=== PATIENT | male | born 1945 | race Caucasian/White ===

== ENCOUNTER 2025-08-12 13:03 | Outpatient (AMB) | payer MEDICARE, BC, SELFPAY ==
--- NOTE | 2025-08-12 13:17 | A.OFFVIS_ITS ---
Intake Visit Reasons: TREMORS AND FOOT CONTRACTURE Allergies No Known Allergies Allergy (Verified 08/11/25 11:01) Medication List - Last Reconciled 08/12/25 by Suresh Sanches MD amlodipine 5 mg PO DAILY apixaban (Eliquis) 5 mg PO BID atorvastatin 80 mg PO DAILY baclofen 10 mg PO TID 30 days clopidogrel 75 mg PO DAILY isosorbide mononitrate ER 60 mg PO DAILY losartan 50 mg PO BID metoprolol tartrate 25 mg PO BID nitroglycerin mg sublingual tramadol 50 mg PO BID PRN HPI Comments Details: This is a 79-year-old man who is here with his . He has a history of hypertension, hyperlipidemia, coronary artery disease with stents and bypass and at least 2 previous strokes in 2013 and 2015 which left him with some left hemiparesis but he was able to get around with a cane and a walker. He had to be moved to an assisted living facility in February 2025 and there he has been mostly in the wheelchair and being transferred via [facility] lift. Once or twice a week he gets a little bit of physical therapy with a try and stand him up but otherwise he is sitting in the chair. He is now not able to stand or walk at this point and his left foot has started to turn in and become quite spastic and rigid. He is unable to extend his knees fully. He has 30% to 35% restriction of extension of the knees bilaterally. In the last 3 years he has also been noted to have tremors in both hands particularly when he is holding a cup of liquid. There is no family history of tremor previously. [facility] Medical History (Updated 08/12/25 @ 13:34 by Suresh Sanches MD) PAF (paroxysmal atrial fibrillation) Hypertension Arthritis of knee Contracture, left foot Tremor Review of Systems ENT Reports hearing loss Reports urinary incontinence Musc Reports abnormal gait, Reports arthralgias and Reports limited range of motion Neuro Reports abnormal gait and Reports tremor(s) Physical Exam Neuro Other: He is alert and oriented with normal speech and cognitive abilities. His cranial nerves 2-12 are normal. He has bilateral shoulder abduction weakness with restriction of shoulder abduction to about 60 degrees being painful. He has fine tremors in his fingers bilaterally when he holds them up. 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 He has left lower extremity weakness and is unable to extend the knees bilaterally with the restriction of 30 degrees on the right and 35 degrees in the left. Reflexes are 2+ plantar responses are flexor. There is increased tone in the left lower extremity with the plantar flexion and inversion of the foot and fibrotic contracture of the left gastroc and soleus. He is in a wheelchair and unable to stand by himself or walk. Assessment & Plan Assessment & Plan (1) Stroke: Code(s): I63.9 - Cerebral infarction, unspecified Category: Medical (2) Hemiparesis affecting left side as late effect of cerebrovascular accident: Code(s): I69.354 - Hemiplegia and hemiparesis following cerebral infarction affecting left non-dominant side Category: Medical (3) Tremor: Code(s): R25.1 - Tremor, unspecified Category: Medical Plan ROM exercises, Brace for left foot. Trial of Baclofen. For the tremor, we discussed treatment options and decided to hold off meds a she is on Eliquis. Medications: New baclofen 10 mg PO TID 90 tabs 3RF 30 days Coding Level of Care Code New Pt Level 5 (41314) Diagnoses Stroke I63.9 Hemiparesis affecting left side as late effect of cerebrovascular accident I69.354 Tremor R25.1
--- OUTSIDE RECORDS SUMMARY | 2025-08-12 20:05 | XMS_ITS | Encounter Summary ---
Author Organization [facility] Address [address] [place] [address] Care Team Providers Care Feltmaker Name Role Phone Joshua Khan Primary Care Provider Encounter Details Date Type Department Care Team (Late st Contact Info) Description 05/30/2025 Telemedicine [facility] Electrophysiology [address] [place] [phone] Francie Forrester MD [address] [place] [address] [address] [place] [address] Social History Tobacco Use Types Packs/Day Years Used Date Smoking Tobacco: Former Cigarettes Smokeless Tobacco: Never Alcohol Use Standard Drinks/Week Comments Not Currently 0 (1 standard drink = 0.6 oz pur e alcohol) Sex and Gender Information Value Date Recorded Sex Assigned at Not on file Legal Sex Male 7:04 PM EST Gender Identity Not on file Sexual Orientation Not on file documented as of this encounter Plan of Treatment Not on file documented as of this encounter Visit Diagnoses Not on filedocumented in this encounter Additional Health Concerns Assessment Noted Time PHQ-9 Depression Total Score: 0 02/25/20 25 12:24 PM EDT documented as of this encounter Care Teams Feltmaker Relationship Specialty Start Date End Date Joshua Khan PA [facility] [place] [address] PCP - General Pediatrics 07/23/25 documented as of this encounter
--- OUTSIDE RECORDS SUMMARY | 2025-08-12 20:05 | XMS_ITS | Continuity of Care Document ---
Author Organization [place] - [facility], [facility] [place] Address [address] [place] [address] Assessment No assessment recorded. Plan of Treatment Reminders Order Date Submit Date Provider Last Modified By Organization Details Last Modified Time Details Appointments None recorded. Lab None recorded. Referral None recorded. Procedures None recorded. Surgeries None recorded. Imaging XR, hand, 3 or more view - u/c 2 pt. in a wheelchair 2024 025 [email or web address] [facility], [address] [facility] [address], [address], [address], 11:47:26 Medication Orders None recorded. Patient TargetsNo targets recorded. Patient InstructionsNo instructions recorded. Reason for Referral None Reported. Results Created Date Observation Date Name Description Value Unit Range Abnormal Flag Note LastModifiedBy Organization Detail LastModifiedTime 07/29/2007/29/2025 XR, hand, 3 or more view http:/ [email or web address] ?Encry pted=s hAaTro YD8dLq bEUv6g %2BXZw aYqtaq 0bqfl% 2Fg9IQ a4ajBk vP9nXo QUaueC m3YtLR FvZlgJ JJ8mAn HZtai3 6h0567 AC0KlY 3SEUKC lKiQtr MwF INTERFACE [address] [facility] [address] [facility] [address], [place], [address], 07/29/2025 09:42:37 07/29/2007/29/2025 XR, hand, 3 or more view http:/ [email or web address] ?Encry pted=s hAaTro YD8dLq bEUv6g %2BXZw aYqtaq 0bqfl% 2Fg9IQ a4ajBk vP9nXo QUaueC m3YtLR FvZlgJ JJ8mAn HZtai3 0t2818 AC0KlY 3SEUKC lKiQtr MwF INTERFACE [facility] [address], [place], [address], 07/29/2025 09:42:39 Result Notes Documentation Provider Name and Address Organization Details Recorded Time Xr, Hand, 3 Or More View : [email or web address] Encrypted=scAoRsgQS4gTfnT Uv6g%2HDNuvBubbn4ftra%2Fg 3YLo8poYmoF2dNnWUhhnBo5Hl SJOxZwtRAG7jLcIOjzj84j066 9BD9TzO3MMMYZfGvJncGxN Not Available [facility] 07/29/2025 09:42: 38 Xr, Hand, 3 Or More View : [email or web address] Encrypted=yyQzEfoMT0kXcsW Uv6g%6XBWdsWigxg8thhr%2Fg 2AIk9ltRypC5zKuSEngtMg0Sj HVKxBgmBYJ1wSoUNgxo18m512 7WQ1BxQ0QNCGQiFtMsuLaI Not Available [facility] 07/29/2025 09:42: 39 Problems Name Problem SNOMED Code Status Onset Date Resolution Date Notes Provider Name and Address Organization Details Recorded Time Osteoarthri tis of left knee joint 1315940618823 09 Active 2024 Crispin Childs MD [address], [place], [address] , [facility] - [facility] 5 15:29:42 Pain of elbow region 93272688 Active 2024 Caroline wakefield [place] - [facility] 09:29:00 Pain of right hand 1037191880645 09 Active 2024 [facility] 09:33:51 Problem Notes None recorded. Procedures Surgical History Date Name Laterality Status Provider Name and Address Organization Details Recorded Time 05/28/20 25 Knee Kenalog 1cc L/R cancelled OSMANI Smith-C [address], [place], [address], [facility] 05/27/2025 21:00:54 02/20/20 25 Knee Kenalog 1cc L/R completed OSMANI Smith-C [address], [place], [address], [facility] 02/20/2025 07:38:42 11/14/19 25 Knee Kenalog 40 1cc Injection, Bilateral completed OSMANI Smith-C [address], [place], [address], [facility] 11/13/2024 11:58:59 07/21/20 24 Knee Kenalog 40 1cc Injection, Bilateral completed OSMANI Smith-C [address], [place], [address], [facility] 07/21/2024 12:32:20 04/07/20 24 Knee Kenalog 40 1cc Injection, Bilateral completed OSMANI Smith-C [address], [place], [address], [facility] 04/07/2024 15:18:34 01/07/20 24 Knee Kenalog 40 1cc Injection, Bilateral completed Abner Pruett PA-C [address], [place], [address], [facility] 01/07/2024 16:38:48 11/19/19 24 Knee Kenalog 40 1cc Injection, Bilateral completed Abner Pruett PA-C [address], [place], [address], [facility] 11/19/2023 12:26:58 Cardiovascular Surgery completed CAROLINE HOLM [place] - [facility] 11/13/2024 10:48:53 Imaging Results None recorded. Procedure Notes None recorded. Medical Equipment None Reported. Allergies No known drug allergies Medications Name Sig Start Date Stop Date Status Note LastModified by Organization Details LastModified Time losartan 50 mg tablet TAKE 1 TABLET BY MOUTH TWICE A DAY active Not Available Not Available No t Available furosemide 40 mg tablet TAKE 1 TABLET BY MOUTH EVERY DAY FOR 7 DAYS 09/10 completed Not Available Not Available Not Available atorvastati n 80 mg tablet TAKE 1 TABLET BY MOUTH EVERY DAY active Not Available Not Available No t Available amlodipine 2.5 mg tablet active Not Available Not Available Not Available clopidogrel 75 mg tablet TAKE 1 TABLET BY MOUTH EVERY DAY active Not Available Not Available No t Available amlodipine 5 mg tablet TAKE 1 TABLET BY MOUTH 1 TIME EACH DAY. active Not Available Not Available No t Available tramadol 50 mg tablet Take 1 tablet every 6 hours by oral route for 7 days. 06/05 completed Not Available Not Available Not Available isosorbide mononitrate ER 60 mg tablet,exte nded release 24 hr TAKE 1 TABLET BY MOUTH EVERY DAY active Not Available Not Available No t Available pantoprazol e 40 mg tablet,mildred yed release active Not Available Not Available Not Available nitroglycer in 0.[address] 1 TAB UNDER TONGUE EVERY 5 MINUTES NEEDED CHEST PAIN AFTER 3 DOSES IN 15 MINS CALL ER/911 active Not Available Not Available No t Available gabapentin 100 mg capsule Take 1 capsule twice a day by oral route as needed for 30 days. active Not Available Not Available No t Available albuterol sulfate HFA 90 mcg/actuati on aerosol inhaler INHALE 2 PUFFS BY MOUTH EVERY 4 HOURS NEEDED FOR SHORTNESS OF BREATH OR WHEEZING active Not Available Not Available No t Available metoprolol tartrate 25 mg tablet TAKE 1 TABLET BY MOUTH TWICE A DAY active Not Available Not Available No t Available diclofenac 1 % topical gel APPLY 2 GM TOPICALLY 3 TIMES A DAY 09/10 completed Not Available Not Available Not Available Eliquis 5 mg tablet TAKE 1 TABLET BY MOUTH TWICE A DAY active Not Available Not Available No t Available Wixela Inhub 100 mcg-50 mcg/dose powder for inhalation TAKE 1 PUFF BY MOUTH TWICE A DAY active Not Available Not Available No t Available JAGJIT 100 mg-theanine 100 mg-ashwagan dha extract 225 mg capsule Take 1 capsule every day by oral route for 30 days. 2024 active Not Available Not Available Not Sakina hobbs Vitals Date Recorded Body height Body mass index (BMI) Body weight Provider Name and Address Organization Details Last Updated DateTime 07/29/2025 177.8 cm 30.1 kg/m2 41645.4 g Caroline Reese [place] - [facility] 07/29/2025 09:28:11 Social History None recorded. Functional Status Question Answer Note LastModified by Organizat ion Details LastModified Time Do you or have you ever used any other forms of tobacco or nicotine? No Information not available 11/13/2024 Do you or have you ever used e-cigarettes or vape? Never used electronic cigarettes Information not available 11/13/2024 Mental Status None recorded. Family History Nothing Reported. Medical History Condition Response Arthritis Y Stroke Y Heart Attack (RI) Y Sleep Apnea Y Hypertension Y Past Encounters Encounter ID Performer Location Encounter Start Date Encounter Closed Date Diagnosis/Indication Diagnosis SNOMED-CT Code Diagnosis ICD10 Code Diagnosis IMO Codes Diagnosis Note [id number] Fran Lomas PA-C [facility] [place] [address] [place] [address] 07/29/2025 08:49:15 08/11/2025 12:26:55 Pain of right hand 2448707148 69074 M79.641 [id number] Health Concerns Section Related Observation LastModified by Organization Detai ls LastModified Time None Recorded Concern Status LastModified by Organization Details LastModified Time None Recorded Payers Encounter Date Sequence Insurance Name Policy Number Policy Steve Covered Member ID Steve Member ID Guarantor Name 07/29/2025 1 [place] [employer] Husam Mcfadden [id number] Husam Mcfadden 07/29/2025 2 [place] [id number] Husam Mcfadden [id number] Husam Mcfadden Notes Date Note Type Note Provider Name and Address Organization Details Recorded Time 07/29/2025 text/html I am seeing the patient today under the supervision of Dr. Childs who was available but who did not see the patient.HPI:Patient' s an 79-year-old male that comes in the office with complaints of discomfort about the right hand. He is here with his . He lives in an assisted living facility. A couple of days ago it sounds like he slid off a chair and caught himself with the right upper extremity from falling. Since then he is at increased swelling over the dorsum of the right hand with discomfort. He was seen in urgent care today.Past family, medical, social history and review of systems has been reviewed, updated and is located in the patient s chart.Examination:T he patient is well appearing and in no apparent distress. Alert and oriented x3. He presents today in a wheelchair. He has moderate swelling of the dorsum of the right wrist in the area of the distal radius. He has limited range of motion of flexion and extension of the right wrist. Peripheral, vascular, lymphatic examination, skin, neurological, coordination, reflexes, sensation are within normal limits.X-rays ordered, obtained and reviewed at [facility] 3 views of the right wrist reviewed demonstrate generalized arthritic change of the hand to include the CMC joint and the DRUJ. There is erosion of the distal radius where the scaphoid meets this area. Smokes chronic in nature. 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 We discussed conservative treatment for this problem. He cannot take a lot of medications. He is on multiple medicines for his comorbidities including anticoagulants. Topical treatment recommended and discussed. We discussed immobilization for the wrist due to this increased swelling in injury to the arthritic wrist. I provided him with a prescription for a wrist splint. We discussed the use of the splint longer term to assist him to get out of his chair and transfer. All questions were answered to his as action today. Fran Lomas PA-C [facility] [address], [place], [address], [facility] - [facility] 07/29/2025 11:00:02
--- OUTSIDE RECORDS SUMMARY | 2025-08-12 20:05 | XMS_ITS | Data Portability ---
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 Greater than 10 years of ongoing symptoms. Apparently, the patient has had multiple falls at home. He has had a stroke in the past. However, the patient essentially has been nonambulatory for approximately 5 years. He is almost essentially wheelchair-bound. He can ambulate occasionally very short distances with a walker. He has had corticosteroid in the past. He has not had long-term benefit. He recently was hospitalized and referred to acute rehab. He states that rehab was not particular helpful for him. Upon discharge he had some home PT. He was not able to regain his ambulatory status. The patient presents today requesting total knee arthroplasty for symptom relief. He gets about 6 weeks relief from corticosteroid. He has had no benefit from viscosupplementat ion. The patient's knee symptom profile form was reviewed and is part of the medical record. The patient remains symptomatic and has had an unsuccessful history of appropriate conservative therapy (non-surgical medical management). Non-surgical medical management has been implemented for 3 months or more to assess effectiveness. Conservative treatment as clinically appropriate for the patient s current episode of care including, but not limited to, one or more of the following: anti-inflammatory medications, analgesics, flexibility and muscle strengthening exercises, supervised physical therapy (Activities of daily living (ADLs) diminished despite completing a plan of care), activity restrictions as is reasonable, assistive device use, weight reduction as appropriate, and therapeutic injections into the joint as appropriate PFMSH and ROS have been reviewed, updated, and is located in the patient s chart. PAST MEDICAL HISTORY: Past medical history is significant for coronary artery disease, ND, stroke, hypercholesteremi a, bronchitis, hypertension PAST SURGICAL HISTORY: Past surgical history includes cardiac stenting MEDICATIONS: Please see intake form. ALLERGIES: Patient reports an allergy to NKDA does not report an allergy to metal, latex, Iodine, tape, or adhesives. SOCIAL HISTORY: The present patient presents today with his . He quit smoking 40 years ago. He does not consume alcohol or illegal drugs. He last saw dentist 6 years ago. He has a support system at home. PHYSICAL EXAMINATION: Please see vitals recorded below Mental status: Alert and lucid. Normal insight, affect, and grooming. 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 No spasticity or clonus noted. Extremities: Calves are soft and nontender. Skin intact. Palpable pedal pulses equal bilaterally. ORTHOPEDIC EXAMINATION: Negative SLR tests bilaterally. Full ROM of both hips without pain. No trochanteric tenderness. The patient is seated in his wheelchair. He was not able to stand even for x-rays. Evaluation of knees: Left Knee range of motion is 10-95 degrees. Knee is stable to varus/valgus loading, anterior/posterio r drawer testing, Tim testing. No erythema, no redness. There is moderate sub patellar crepitus. Peripheral vascular, lymphatic examination, skin, neurological coordination, reflexes, and sensation are within normal limits. IMAGING: X-rays ordered, obtained, and reviewed today on [facility] PACS: Not weight bearing AP of Both knees, Espino view of Both Knees, [place] View of Both Knees, and Lateral of the Left knee; demonstrate severe end-stage osteoarthritis of the Left knee. There is ipwe-kf-lxjw articulation medially, subchondral sclerosis, osteophyte formation. There is varus deformity and there isModerate patellofemoral involvement. There is Kellgren Serge grade 4 osteoarthritis. IMPRESSION: Left knee end-stage osteoarthritis and a minimal ambulator PLAN: I reviewed with the patient surgical and nonsurgical means to control symptoms. The patient has essentially been nonambulatory for 5 years. He has flexion contractures bilaterally consistent with his status. He is essentially full I reviewed with the patient his situation. He describes relatively severe knee pain even at rest. Patient states that he is not even able to ambulate. I encouraged him that in order to have successful outcome from total knee arthroplasty would need to be able to participate in both physical therapy. It is not clear to me that he can do this. I recommended referral for a course of physical therapy to work on ambulation and strengthening. If the patient is able to turn his status to be limited ambulator with walker he may be able to participate in the postoperative physical therapy. In the interval, I have also recommended a genicular nerve block. This will be performed by the anesthesia pain service. It may help reduce his overall pain setting. He would need to be significant ambulator prior to consideration of total knee arthroplasty Patient will continue to follow-up in our office for intermittent intra-articular steroid. The patient knows I will be happy to meet with them at any time in order to review any additional questions or concerns that they might have. Patient was satisfied with this plan. I attempted to answer all of the patient's questions. [employer] speech recognition postal worker software was used to create portions of this document. An attempt at proofreading has been made to minimize errors. Please call for corrections. [email or web address] Not available 09/11/2024 08:34:53 Plan of Treatment Reminders Order Date Submit Date Provider Last Modified By Organization Details Last Modified Time Details Appointments None recorded. Lab None recorded. Referral [facility]is t [facility] [address], [facility] [address], [place], [address], 5 10:40:36 physical therapist referral - PT for ambulation and ROM 2024 025 Not available 5 14:08:26 Procedures genicular nerve block (PROC) 2024 025 [email or web address] Not available 5 14:01:09 Surgeries None recorded. Imaging XR, hand, 3 or more view - u/c 2 pt. in a wheelchair 2024 025 [email or web address] [facility], [address], [address], [place], [address], 5 11:47:26 XR, foot, 3 or more view - rm 108 left foot 3v wb 2024 025 [email or web address] [facility], [address], [address], [place], [address], 5 09:37:17 XR, knee, 4 or more view - 206, 4 views of left knee 2024 025 [email or web address] [facility], [address], [address], [place], [address], 5 14:08:26 Medication Orders tramadol 50 mg tablet 2024 025 [id number], [address] [place], [address], 5 05:01:57 JAGJIT 100 mg-theanin e 100 mg-ashwaga ndha extract 225 mg capsule 2024 025 [id number], [address] [place], [address], 5 16:02:37 gabapentin 100 mg capsule 2024 025 [id number] [address] [place], [address], 5 16:02:17 Patient TargetsNo targets recorded. Patient InstructionsNo instructions recorded. 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 left lower extremity hx of stroke Referring Physician: Consuelo Lopez, Orthopedic Surgery, Encounter Date: 05/22/2025 Results Created Date Observation Date Name Description Value Unit Range Abnormal Flag Note LastModifiedBy Organization Detail LastModifiedTime 09/10/192025 XR, knee, 4 or more view [email or web address] ?Encry pted=s hAaTro YD8dLq bEUv6g %2BXZw aYqtaq 0bqfl% 2Fg9IQ a4ajBk vP9nXo QUaueC m3YtLR FvZlgJ JJ8mAn HZtai3 1m1237 AC0Kqb 3yBWaC uKiQtr MwF INTERFACE [facility] [address] [facility] [address], [place], [address], 09/10/2024 14:15:50 09/10/19 25 09/10/2024 XR, knee, 4 or more view [email or web address] ?Encry pted=s hAaTro YD8dLq bEUv6g %2BXZw aYqtaq 0bqfl% 2Fg9IQ a4ajBk vP9nXo QUaueC m3YtLR FvZl JJ8mAn HZtai3 9a2244 AC0Kqb 3yBWaC uKiQtr MwF INTERFACE [facility] [address] [facility] [address], [place], [address], 09/10/2024 14:15:52 09/10/19 25 09/10/2024 XR, knee, 4 or more view [email or web address] ?Encry pted=s hAaTro YD8dLq bEUv6g %2BXZw aYqtaq 0bqfl% 2Fg9IQ a4ajBk vP9nXo QUaueC m3YtLR FvZlg JJ8mAn HZtai3 8c3398 AC0Kqb 3yBWaC uKiQtr MwF INTERFACE [facility] [address] [facility] [address], [place], [address], 09/10/2024 14:42:49 09/10/19 25 09/10/2024 XR, knee, 4 or more view [email or web address] ?Encry pted=s hAaTro YD8dLq bEUv6g %2BXZw aYqtaq 0bqfl% 2Fg9IQ a4ajBk vP9nXo QUaueC m3YtLR FvZlgJ JJ8mAn HZtai3 2x8000 AC0Kqb 3yBWaC uKiQtr MwF INTERFACE [facility] [address], [place], [address], 09/10/2024 14:42:51 05/22/20 25 05/22/2025 XR, foot, 3 or more view [email or web address] ?Encry pted=s hAaTro YD8dLq bEUv6g %2BXZw aYqtaq 0bqfl% 2Fg9IQ a4ajBk vP9nXo QUaueC m3YtLR FvZlgJ JJ8mAn HZtai3 2j5118 AC0Klb HqEUaS kKiQtr MwF INTERFACE [facility] [address], [place], [address], 05/22/2025 13:05:21 05/22/20 25 05/22/2025 XR, foot, 3 or more view [email or web address] ?Encry pted=s hAaTro YD8dLq bEUv6g %2BXZw aYqtaq 0bqfl% 2Fg9IQ a4ajBk vP9nXo QUaueC m3YtLR FvZlgJ JJ8mAn HZtai3 0y4094 AC0Klb HqEUaS kKiQtr MwF INTERFACE [facility] [address], [place], [address], 05/22/2025 13:05:24 05/22/20 25 05/22/2025 XR, foot, 3 or more view [email or web address] ?Encry pted=s hAaTro YD8dLq bEUv6g %2BXZw aYqtaq 0bqfl% 2Fg9IQ a4ajBk vP9nXo QUaueC m3YtLR FvZlgJ JJ8mAn HZtai3 3o3179 AC0Klb HqEUaS kKiQtr MwF INTERFACE [facility] [address], [place], [address], 05/22/2025 13:52:09 05/22/20 25 05/22/2025 XR, foot, 3 or more view [email or web address] ?Encry pted=s hAaTro YD8dLq bEUv6g %2BXZw aYqtaq 0bqfl% 2Fg9IQ a4ajBk vP9nXo QUaueC m3YtLR FvZlgJ JJ8mAn HZtai3 3u7865 AC0Klb HqEUaS kKiQtr MwF INTERFACE [facility] [address], [place], [address], 05/22/2025 13:52:11 07/29/20 25 07/29/2025 XR, hand, 3 or more view [email or web address] ?Encry pted=s hAaTro YD8dLq bEUv6g %2BXZw aYqtaq 0bqfl% 2Fg9IQ a4ajBk vP9nXo QUaueC m3YtLR FvZlgJ JJ8mAn HZtai3 6f2536 AC0KlY 3SEUKC lKiQtr MwF INTERFACE [facility] [address], [place], [address], 07/29/2025 09:42:37 07/29/20 25 07/29/2025 XR, hand, 3 or more view [email or web address] ?Encry pted=s hAaTro YD8dLq bEUv6g %2BXZw aYqtaq 0bqfl% 2Fg9IQ a4ajBk vP9nXo QUaueC m3YtLR FvZlgJ JJ8mAn HZtai3 2v8438 AC0KlY 3SEUKC lKiQtr MwF INTERFACE [facility] [address] [facility] [address], [place], [address], 07/29/2025 09:42:39 Result Notes Documentation Provider Name and Address Organization Details Recorded Time Xr, Knee, 4 Or More View : [email or web address] Encrypted=spUwKmyRN4cKhxB Uv6g%5GNTngCyojl9xyfp%2Fg 8BVg4vzBvwO9hNfOEylnOd3Mx VMYcClyNWC5pCuDWoqm36e811 3ZH3Awu2bQDrJmWtLpsBxC Not Available [facility] 09/10/2024 14:15: 51 Xr, Knee, 4 Or More View : [email or web address] Encrypted=nxRsKlaQS7vRdwC Uv6g%1BEDarEpchd1tuku%2Fg 0GHo8xeKvbT9sRtYAftlKo8Sb NEUiComIWE7oYtSKaff30l453 6GH6Iud0tMUmEzSmMtlBxK Not Available [facility] 09/10/2024 14:15: 52 Xr, Knee, 4 Or More View : [email or web address] Encrypted=akNvVdpQY4zExvP Uv6g%0ZIWqvRuqel9awgp%2Fg 3ZHv8ipUskX5aVgRGccmQn4Tm GXClLuqXVG3rKlLTgen74c391 8WB9Dpo0fIMeWaNoFhrTpL Not Available [facility] 09/10/2024 14:42: 50 Xr, Knee, 4 Or More View : [email or web address] Encrypted=hsClJcaFO5wTywF Uv6g%0GIZysJfoyb3npww%2Fg 1TDk9aaTdsU9kVhAAbklEp6Vw ZKQcZoyIXI8fDrSJqzx58a977 5GE2Tpj3iBWaYkUmJfyPsX Not Available [facility] 09/10/2024 14:42: 52 Xr, Foot, 3 Or More View : [email or web address] Encrypted=zuPlFdkUH8fAqgO Uv6g%2RXQlaPtefg3dezm%2Fg 7KYu7neVukV9fDxBVevzUw7Pg HJCkIysFEQ4uXnAUwsr92i404 4HN9FnyPrWAfSgBcPngObH Not Available [facility] 05/22/2025 13:05: 22 Xr, Foot, 3 Or More View : [email or web address] Encrypted=nmAjKezRG0jFwmV Uv6g%4DLDthCwclh9nbua%2Fg 2JBn9gfSypT0cXlALdatXg2Om YURrUbuMTL6lNcZEbot71o363 0ZW7AmmCaMCxHmYxZctSkX Not Available [facility] 05/22/2025 13:05: 24 Xr, Foot, 3 Or More View : [email or web address] Encrypted=trFdYjqCW7sExuC Uv6g%1BURisDwtxz0dptj%2Fg 5HHq0svOovS9mGcFWujfNf5We SNOhLfxNLK1eQwYLqqk48h716 4UL3FurHmPYmMrRwGiuRqZ Not Available [facility] 05/22/2025 13:52: 10 Xr, Foot, 3 Or More View : [email or web address] Encrypted=xgSjEtlPX7wRcyB Uv6g%5XCPwvRxoxx7iytb%2Fg 3MPq7ufHbcL4wShDDsnaJp4Nk DJTuKjbEWH1xCxUKicp68k017 8QT2KubEpHEpQrFkIdgYjL Not Available [facility] 05/22/2025 13:52: 11 Xr, Hand, 3 Or More View : [email or web address] Encrypted=qcPkMihZD1gXqsK Uv6g%4FIKpkIewke7dlge%2Fg 6ZQi3svPlaD1eDzRDrkfLd0Mc VRBmLvmYVS3aAzEUppn46f421 4UN3GnU6HUNNSdHsXihLbU Not Available [facility] 07/29/2025 09:42: 38 Xr, Hand, 3 Or More View : [email or web address] Encrypted=doJeWtbLH1nMrwU Uv6g%5OPKdpOumqn0tolh%2Fg 4XDg7gqHovG7zVyUWhoqHd3Ka DVHlUywNAZ0zOgVNncg61j781 2FW3IeY4XXTXPbJzAefKdQ Not Available [facility] 07/29/2025 09:42: 39 Problems Name Problem SNOMED Code Status Onset Date Resolution Date Notes Provider Name and Address Organization Details Recorded Time Osteoarthri tis of left knee joint 8646738602825 09 Active 2024 Crispin Childs MD [address], [place], [address], [facility] 5 15:29:42 Pain of elbow region 47736915 Active 2024 Caroline wakefield [facility] 5 09:29:00 Pain of right hand 8028972773577 09 Active 2024 Caroline wakefield [facility] 5 09:33:51 Problem Notes None recorded. Procedures Surgical History Date Name Laterality Status Provider Name and Address Organization Details Recorded Time 05/28/20 Knee Kenalog 1cc L/R cancelled Abner Pruett PA-C [address], [place], [address], [facility] 05/27/2025 21:00:54 02/20/20 25 Knee Kenalog 1cc L/R completed Abner Pruett PA-C [address], [place], [address], [facility] 02/20/2025 07:38:42 11/14/19 25 Knee Kenalog 40 1cc Injection, Bilateral completed Abner Pruett PA-C [address], [place], [address], [facility] 11/13/2024 11:58:59 07/21/20 24 Knee Kenalog 40 1cc Injection, Bilateral completed Abner Pruett PA-C [address], [place], [address], [facility] 07/21/2024 12:32:20 04/07/20 24 Knee Kenalog 40 1cc Injection, Bilateral completed Abner Pruett PA-C [address], [place], [address], [facility] 04/07/2024 15:18:34 01/07/20 24 Knee Kenalog 40 1cc Injection, Bilateral completed Abner Pruett PA-C [address], [place], [address], [facility] 01/07/2024 16:38:48 11/19/19 24 Knee Kenalog 40 1cc Injection, Bilateral completed Abner Pruett PA-C [address], [place], [address], [facility] 11/19/2023 12:26:58 Cardiovascular Surgery completed CAROLINE HOLM [facility] 11/13/2024 10:48:53 Imaging Results None recorded. Procedure [...] 2024 active Not Available Not Available Not Avai lable Vitals Date Recorded Body height Body mass index (BMI) Body weight Provider Name and Address Organization Details Last Updated DateTime 09/10/2024 177.8 cm 30.1 kg/m2 40228.4 g Suresh Lawrence [place] - [facility] 09/10/2024 14:05:50 Date Recorded Body height Provider Name an d Address Organization Details Last Updated DateTime 11/13/2024 177.8 cm CAROLINE ALTA [facility] 11/13/2024 10:49:02 Date Recorded Body height Body mass index (BMI) Body weight Provider Name and Address Organization Details Last Updated DateTime 05/22/2025 177.8 cm 30.1 kg/m2 89547.4 g Jayneconstantin Garciaquez [facility] 05/22/2025 12:47:39 Date Recorded Body height Body mass index (BMI) Body weight Provider Name and Address Organization Details Last Updated DateTime 07/29/2025 177.8 cm 30.1 kg/m2 99479.4 g Caroline Mary Ann [facility] 07/29/2025 09:28:11 Social History None recorded. Functional [...] Reported. Medical History Condition Response Arthritis Y Sleep Apnea Y Heart Attack (ND) Y Stroke Y Hypertension Y Past Encounters Encounter ID Performer Location Encounter Start Date Encounter Closed Date Diagnosis/Indication Diagnosis SNOMED-CT Code Diagnosis ICD10 Code Diagnosis IMO Codes Diagnosis Note [id number] [place] [address] 11/19/2023 15:28:29 11/19/2023 16:43:23 Bilateral osteoarthritis of knees 8592428353 91649 M17.[id number] [place] [address] 01/07/2024 13:10:57 01/28/2024 14:51:00 Osteoarthritis of left knee joint 9875138314 84201 M17.12 Osteoarthr itis of right knee joint 5727171234 30394 M17.[id number] [place]IM[place] C[place], [place] [address] 04/07/2024 15:18:19 04/29/2024 09:29:28 Osteoarthritis of right knee joint 8988245001 73421 M17.11 Osteoarthr itis of left knee joint 4505668612 44321 M17.12 Pain of ri ght knee joint 4226372115 80334 M25.969 [id number] JEAN MARIE [facility] [address] [place], [place] [address] 07/21/2024 15:07:28 08/15/2024 09:01:24 Osteoarthritis of right knee joint 9090704409 27247 M17.11 [id number] Osteoarthr itis of left knee joint 0442575489 73324 M17.12 [id number] MD [facility] [address] [place] [address] 09/10/2024 13:52:51 09/22/2024 14:08:26 Osteoarthritis of left knee joint 2009911064 92014 M17.12 [id number] Abner Pruett PA-C [facility] [address] [place] [address] 11/13/2024 10:45:16 11/27/2024 12:36:39 Osteoarthritis of right knee joint 8215008075 75902 M17.11 [id number] Osteoarthr itis of left knee joint 8725426475 26488 M17.12 [id number] JEAN MARIE [facility] [address] [place] [address] 02/19/2025 12:47:18 02/27/2025 08:42:10 Osteoarthritis of left knee joint 3212373276 03732 M17.12 [id number] Consuelo Lopez PA-C [facility] [address] [place] [address] 05/22/2025 12:37:10 06/01/2025 09:37:17 Pain in left foot 2588393602 41697 M79.672 362443 Equinus co ntracture of the ankle 280894004 M24.572 [id number] Fran Lomas PA-C [facility] [place] [address] [place] [address] 07/29/2025 08:49:15 08/11/2025 12:26:55 Pain of right hand 2553869036 63858 M79.641 [id number] Health Concerns Section Related Observation LastModified by Organization Detai ls LastModified Time None Recorded Concern Status LastModified by Organization Details LastModified Time None Recorded Advance Directives Directive None Recorded Payers Insurance Date Sequence Insurance Name Policy Number Policy Steve Covered Member ID Steve Member ID Guarantor Name 07/29/2025 1 [place] [employer] Husam Mcfadden [id number] Husam Mcfadden 07/11/2024 2 [id number] Husam Mcfadden 08/11/2025 2 [place] [id number] Husam Mcfadden [id number] Husam Mcfadden Notes Date Note Type Note Provider Name and Address Organization Details Recorded Time 11/13/2024 text/html I am seeing the patient today under the supervision of who was available but who did not see the patient. Chief Complaint The patient presents today for recheck of bilateral knee osteoarthritis. Is known to have knee arthritis treated conservatively to this point with 3 months relief of symptoms. Presents today for recheck secondary to increased knee pain. History of Present Illness Allergy list reviewed Medication list reviewed Past Medical/Surgical History Reviewed today, otherwise unchanged per intake sheet. Physical Findings General Appearance: Well developed. In no acute distress. Musculoskeletal System: Knee: General/bilateral: No laxity of the knee. Right Knee: Medial aspect was tender on palpation. No erythema. No warmth. Left Knee: Medial aspect was tender on palpation. No erythema. No warmth. Musculoskeletal Scales: General/bilateral: Mild effusion noted. Neurological: Oriented to time, place, and person. Gait And Stance: Normal. Psychiatric: Mood was appropriate to the affect. Left knee 0-120 degrees of flexion with discomfort. Right knee 0-120 degrees of flexion with discomfort. Assessment Osteoarthritis of knee -bilateral knees Plan More than 50% of todays visit was spent on direct patient counseling regarding their knee condition and treatment options both operative with knee arthroplasty and non-operative, including oral medications and injection therapy. After discussion, my clinical decision was to go forth with an intra-articular cortisone injection. After explaining risks and benefits, under meticulous aseptic technique, each knee was injected with, 1cc of Kenalog 40mgs and 4 cc of Marcaine 1/4%. They tolerated the procedures well. Post injection precautions reviewed. Follow up with us in 3 months for further discussion of total knee replacement surgery versus continued conservative treatment. Abner Pruett PA-C [address] [facility] [address], [place], [address], [place] - [facility] 11/13/2024 11:59:50 02/19/2025 text/html I am seeing the patient today under the supervision of who was available but who did not see the patient. Chief Complaint The patient presents today for recheck of left knee osteoarthritis. Is known to have knee arthritis treated conservatively to this point with 3 months relief of symptoms. Presents today for recheck secondary to increased knee pain. Past Medical/Surgical History Reviewed today, otherwise unchanged per intake sheet. Physical Findings General Appearance: Well developed. In no acute distress. Musculoskeletal System: Knee: General/bilateral: No laxity of the knee. Right Knee: Medial aspect was tender on palpation. No erythema. No warmth. Left Knee: Medial aspect was tender on palpation. No erythema. No warmth. Musculoskeletal Scales: General/bilateral: Mild effusion noted. Neurological: Oriented to time, place, and person. Gait And Stance: Normal. Psychiatric: Mood was appropriate to the affect. Left knee 0-120 degrees of flexion with discomfort. Assessment Osteoarthritis of knee - Plan More than 50% of todays visit was spent on direct patient counseling regarding their knee condition and treatment options both operative with knee arthroplasty and non-operative, including oral medications and injection therapy. After discussion, my clinical decision was to go forth with an intra-articular cortisone injection. After explaining risks and benefits, under meticulous aseptic technique, the knee was injected with, 1cc of Kenalog 40mgs and 4 cc of Marcaine 1/4%. They tolerated the procedures well. Post injection precautions reviewed. Follow up with us in 3 months for further discussion of total knee replacement surgery versus continued conservative treatment. Abner Pruett PA-C [address] [facility] [address], [place], [address], [facility] 02/20/2025 07:39:01 05/22/2025 text/html I am seeing this patient under the supervision of Dr. Butler, who was available but who did not see the patient. HPI: Patient is an 79-year-old male presenting today in regards to painful left foot and ankle deformity that has gotten worse over the past month. He does have a history of stroke in the past. No recent history of stroke or trauma. Describes progressively worsening equina cavovarus deformity that has become painful. He is currently living in a long-term facility and uses a Aubrie lift for transfers. Previously was transferring on his own at home. Denies any interval trauma. Denies any fevers, chills, or paresthesias. PFMSH, Meds and ROS reviewed, updated and signed by me, and is located in the patient's chart. PHYSICAL EXAMINATION: The patient is well appearing and in no apparent distress. Alert and oriented x 3. Examination of his left foot and ankle demonstrates equina cavovarus deformity. This is somewhat passively correctable to neutral. Not much strength with dorsiflexion or eversion. Calf soft, nontender. RADIOLOGY: X-rays were ordered, obtained, and reviewed today in our office. 5 views of the left foot and ankle demonstrate equina cavovarus deformity. 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 Unfortunately it seems that his deformity has progressed fairly quickly over the last month. And wondering if part of this is due to him not weightbearing much. We discussed use of a custom AFO brace to wear to prevent further deformity or rigid deformity. This should only be worn when weightbearing and can take off in bed. Discussed daily or multiple times daily skin checks to avoid any pressure sores. He was given prescriptions for gabapentin and tramadol. I strongly recommended neurology referral as his deformity seems neurologic in nature and he has a history of stroke. Call with questions or concerns. The patient is ambulatory, but has weakness and/or instability of their extremity which requires stabilization from this semi-rigid/rigid orthosis to improve their function. Verbal and written instructions for the use and application of this item were given. Patient was instructed that should the brace result in increased pain, decreased sensation, increased swelling or an overall worsening of their medical condition, to please contact our office immediately. Consuelo Lopez PA-C [address], [place], [address], [facility] [place] [facility] 05/31/2025 19:23:02 07/29/2025 text/html I am seeing the patient [...] normal limits.X-rays ordered, obtained and reviewed at [facility] 3 views of the right wrist [...] his as action today. Fran Lomas PA-C [address] [place], [place] [address]joy[address] [address], [place], [address], [facility] 07/29/2025 11:00:02
--- OUTSIDE RECORDS SUMMARY | 2025-08-12 20:05 | XMS_ITS | Encounter Summary ---
Author Organization [facility] Address [address] [place] [address] Care Team Providers Care Medical Office Representative Name Role Phone Joshua Khan Primary Care Provider Reason for Visit * Reason Onset Date Comments medication questions 07/23/2025 Encounter Details Date Type Department Care Team (Late st Contact Info) Description 07/23/2025 Telephone Internal Medicine - [facility] [address] [facility] [place] [address] Gin Beverly DO [address] [place] [address] Social History Tobacco Use Types Packs/Day Years [...] on file documented as of this encounter Progress Notes * Kaela Pham MA - 07/23/2025 1:13 PM EST Called edie and informed no current inhaler on list or in history, do not see pulm consult or even a referral, snapshot says CAROLYN but she isnt sure if patient has a CPAP either. She will check with patient's and call back if anything otherwise message is addressed. Do not see a sleep study test done. * Cade Vinayak - 07/23/2025 12:54 PM EST Edie Nurse from [facility] needs clarification on pt's medications (inhalers). Also would like to know if pcp took over for pt's albuterol.? Contact: documented in this encounter Plan of Treatment Not on file documented as of this encounter Visit Diagnoses Not on filedocumented in this encounter Additional Health Concerns Assessment Noted Time PHQ-9 Depression Total Score: 0 02/25/20 12:24 PM EDT documented as of this encounter Care Teams Medical Office Representative Relationship Specialty Start Date End Date Joshua Khan PA [address] [place] [address] [place] [address] PCP - General Pediatrics 07/23/25 documented as of this encounter
--- OUTSIDE RECORDS SUMMARY | 2025-08-12 20:06 | XMS_ITS | Continuity of Care Document ---
Author Organization [facility], [address] 1st Floor Address [address] [place] [address] Assessment No assessment recorded. Plan of Treatment Reminders Order Date Submit Date Provider Last Modified By Organization Details Last Modified Time Details Appointments None recorded. Lab None recorded. Referral neurologis t referral 2024 025 [facility], [address] [facility], [facility] [address], [place], [address], 10:40:36 Procedures None recorded. Surgeries None recorded. Imaging XR, foot, 3 or more view - rm 108 left foot 3v wb 2024 025 [facility], [address], [facility] [address], [place], [address], 09:37:17 Medication Orders tramadol 50 mg tablet 2024 025 [facility][id number], [address] [facility] [place], [address], 05:01:57 JAGJIT 100 mg-theanin e 100 mg-ashwaga ndha extract 225 mg capsule 2024 025 [facility][id number], [address] [facility] [place], [address], 16:02:37 gabapentin 100 mg capsule 2024 025 [facility][id number], [address] [facility] [place], [address], 16:02:17 Patient TargetsNo targets recorded. Patient InstructionsNo instructions recorded. 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 hx of stroke Referring Physician: Consuelo Lopez, Orthopedic Surgery, Encounter Date: 05/22/2025 Results Created Date Observation Date Name Description Value Unit Range Abnormal Flag Note LastModifiedBy Organization Detail LastModifiedTime 05/22/2005/22/2025 XR, foot, 3 or more view [email or web address]:/ [email or web address] ?Encry pted=s hAaTro YD8dLq bEUv6g %2BXZw aYqtaq 0bqfl% 2Fg9IQ a4ajBk vP9nXo QUaueC m3YtLR FvZlg JJ8mAn HZtai3 9t6715 AC0Klb HqEUaS kKiQtr MwF INTERFACE [facility] [address], [place], [address], 05/22/2025 13:05:21 05/22/20 25 05/22/2025 XR, foot, 3 or more view [email or web address]:/ [email or web address] ?Encry pted=s hAaTro YD8dLq bEUv6g %2BXZw aYqtaq 0bqfl% 2Fg9IQ a4ajBk vP9nXo QUaueC m3YtLR FvZl85 Warren Streettai3 9q9762 AC0Klb HqEUaS kKiQtr MwF INTERFACE [facility] [address], [place], [address], 05/22/2025 13:05:24 05/22/20 25 05/22/2025 XR, foot, 3 or more view [email or web address]:/ [email or web address] ?Encry pted=s hAaTro YD8dLq bEUv6g %2BXZw aYqtaq 0bqfl% 2Fg9IQ a4ajBk vP9nXo QUaueC m3YtLR FvZlgJ JJ8mAn HZtai3 2j6976 AC0Klb HqEUaS kKiQtr MwF INTERFACE [facility] [address] [address], [place], [address], 05/22/2025 13:52:09 05/22/20 25 05/22/2025 XR, foot, 3 or more view [email or web address]:/ [email or web address] ?Encry pted=s hAaTro YD8dLq bEUv6g %2BXZw aYqtaq 0bqfl% 2Fg9IQ a4ajBk vP9nXo QUaueC m3YtLR FvZlgJ JJ8mAn HZtai3 7y6200 AC0Klb HqEUaS kKiQtr MwF INTERFACE [address], [address], 05/22/2025 13:52:11 07/29/20 25 07/29/2025 XR, hand, 3 or more view [email or web address]:/ [email or web address] ?Encry pted=s hAaTro YD8dLq bEUv6g %2BXZw aYqtaq 0bqfl% 2Fg9IQ a4ajBk vP9nXo QUaueC m3YtLR FvZlg JJ8mAn HZtai3 5l5715 AC0KlY 3SEUKC lKiQtr MwF INTERFACE [facility] [address] [address], [place], [address], 07/29/2025 09:42:37 07/29/20 25 07/29/2025 XR, hand, 3 or more view [email or web address]:/ [email or web address] ?Encry pted=s hAaTro YD8dLq bEUv6g %2BXZw aYqtaq 0bqfl% 2Fg9IQ a4ajBk vP9nXo QUaueC m3YtLR FvZlgJ JJ8mAn HZtai3 0g2739 AC0KlY 3SEUKC lKiQtr MwF INTERFACE [facility] [address], [place], [address], 07/29/2025 09:42:39 Result Notes Documentation Provider Name and Address Organization Details Recorded Time Xr, Foot, 3 Or More View : [email or web address]? Encrypted=twSyWgnGS4nTnjN Uv6g%2ZMAciDzfea4jpdw%2Fg 7UNo2jyVfvG5tPxOPibzNt4Al SRBbPepHNZ6wJfLHhtf38h553 1YM0IbnAdOTiPgMmAuvDqI Not Available [facility] 05/22/2025 13:05: 22 Xr, Foot, 3 Or More View : [email or web address] Encrypted=qxFpYkyHZ7fEdrZ Uv6g%5NEEeoQtkeh9bkrm%2Fg 9GPa9ccUwxG1kFtLRgciUo1Nk GJDvEcvQXE2qZaJHblu94m358 2LD7WouPtCCiTmPdJkbUkP Not Available [facility] 05/22/2025 13:05: 24 Xr, Foot, 3 Or More View : [email or web address] Encrypted=rvPoWkdWK0fRouC Uv6g%6GGYgsIctuq1zarh%2Fg 0BJm4loGgvT0uHmZVyxeRn2Zj EGCzEquCTO1pRzYUtpp56s788 6OS8VdtHdPTlUmNwWetYaA Not Available [facility] 05/22/2025 13:52: 10 Xr, Foot, 3 Or More View : [email or web address] Encrypted=muOsUneIC2tMjgI Uv6g%9FWAmeItvak6mqcc%2Fg 2CGy4ioOwbE7kElFSibsQe1Zq PZUnLzrNAQ0mIaFLqrc41j261 7MZ5IuyQzNThOiLaJgiCyL Not Available [facility] 05/22/2025 13:52: 11 Problems Name Problem SNOMED Code Status Onset Date Resolution Date Notes Provider Name and Address Organization Details Recorded Time Osteoarthri tis of left knee joint 9336867351150 09 Active 2024 Crispin Childs MD [address], [place], [address], [facility] 5 15:29:42 Pain of elbow region 04573213 Active 2024 Caroline wakefield [facility] 09:29:00 Pain of right hand 7386640617038 09 Active 2024 Caroline wakefield [facility] 09:33:51 Problem Notes None recorded. Procedures Surgical History Date Name Laterality Status Provider Name and Address Organization Details Recorded Time 05/28/20 25 Knee Kenalog 1cc L/R cancelled OSMANI Smith-C [address], [place], [address], [facility] 05/27/2025 21:00:54 02/20/20 25 Knee Kenalog 1cc L/R completed Abner Pruett PA-C [address], [place], [address], [facility] 02/20/2025 07:38:42 11/14/19 25 Knee Kenalog 40 1cc Injection, Bilateral completed Abner Pruett PA-C [address], [place], [address], [facility] 11/13/2024 11:58:59 07/21/20 24 Knee Kenalog 40 1cc Injection, Bilateral completed Abner Pruett PA-C [address], [place], [address], [facility] 07/21/2024 12:32:20 04/07/20 24 Knee Kenalog 40 1cc Injection, Bilateral completed Abner Pruett PA-C [address], [place], [address], [facility] 04/07/2024 15:18:34 01/07/20 24 Knee Kenalog 40 1cc Injection, Bilateral completed Abner Pruett PA-C [address], [place], [address], [facility] 01/07/2024 16:38:48 11/19/19 24 Knee Kenalog 40 1cc Injection, Bilateral completed Abner Pruett PA-C [address], [place], [address], [facility] 11/19/2023 12:26:58 Cardiovascular Surgery completed CAROLINE HOLM [facility] 11/13/2024 10:48:53 Imaging Results None recorded. [...] Updated DateTime 05/22/2025 177.8 cm 30.1 kg/m2 78664.4 g Ike Wilson [place] - [facility] 05/22/2025 12:47:39 Social History None recorded. Functional Status Question [...] History Nothing Reported. Medical History Condition Response Heart Attack (SD) Y Arthritis Y Stroke Y Hypertension Y Sleep Apnea Y Past Encounters Encounter ID Performer Location Encounter Start Date Encounter Closed Date Diagnosis/Indication Diagnosis SNOMED-CT Code Diagnosis ICD10 Code Diagnosis IMO Codes Diagnosis Note [id number] JEAN MARIE Cramer 1st [address] [place] [address] 05/22/2025 12:37:10 06/01/2025 09:37:17 Pain in left foot 2445545433 05725 M79.672 492574 Equinus co ntracture of the ankle 316653812 M24.572 [id number] Health Concerns Section Related Observation LastModified by Organization James ls LastModified Time None Recorded Concern Status LastModified by Organization Details LastModified Time None Recorded Payers Encounter Date Sequence Insurance Name Policy Number Policy Steve Covered Member ID Steve Member ID Guarantor Name 05/22/2025 1 [place] [email or web address] Husam Burrows Lesa [id number] Husam Mcfadden 05/22/2025 2 [place] [id number] Husam Mcfadden [id number] Husam Mcfadden Notes Date Note Type Note Provider Name and Address Organization Details Recorded Time 05/22/2025 text/html I am seeing this patient [...] office immediately. Consuelo Lopez PA-C [address], [place], [address], [facility] - [facility] 05/31/2025 19:23:02
--- OUTSIDE RECORDS SUMMARY | 2025-08-12 20:06 | XMS_ITS | Clinical Summary ---
Author Organization [facility] Address [address] [place] [address] Phone Care Team Providers Care Recreational Sports Director Name Role Phone Joshua Khan Primary Care Provider Allergies No known active allergies Medications gabapentin (NEURONTIN) 100 mg capsule Take 1 capsule (100 mg total) by mouth 3 (three) times a day. 5 Active acetaminophen (Tylenol 8 Hour) 650 mg 8 hr tablet Take 1 tablet (650 mg total) by mouth 3 (three) times a day if needed for mild pain. Do not crush, chew, or split. 90 tablet 1 5 Active nitroglycerin (NITROSTAT) 0.4 mg SL tabletIndicatio ns:Atherosclero tic heart disease of muscogee coronary artery without angina pectoris PLACE 1 TAB UNDER TONGUE EVERY 5 MINUTES NEEDED CHEST PAIN AFTER 3 DOSES IN 15 MINS CALL ER/911 100 tablet 1 5 Active fluticasone propion/salmete rol (WIXELA INHUB INHL) Inhale by mouth. Active ALBUTEROL INHL Inhale by mouth. Active metoprolol tartrate (LOPRESSOR) 25 mg tablet TAKE 1 TABLET BY MOUTH TWICE DAILY. 60 tablet 3 5 Active losartan (COZAAR) 50 mg tablet TAKE 1 TABLET BY MOUTH TWICE DAILY. 60 tablet 3 5 Active isosorbide mononitrate (IMDUR) 60 mg 24 hr tablet TAKE (1) TABLET BY MOUTH DAILY 30 tablet 3 5 Active clopidogreL (PLAVIX) 75 mg tablet TAKE (1) TABLET BY MOUTH DAILY 30 tablet 3 5 Active atorvastatin (LIPITOR) 80 mg tablet TAKE (1) TABLET BY MOUTH DAILY 30 tablet 3 5 Active Eliquis 5 mg tablet TAKE 1 TABLET BY MOUTH TWICE DAILY. 60 tablet 3 5 Active amLODIPine (NORVASC) 5 mg tablet TAKE (1) TABLET BY MOUTH DAILY 30 tablet 3 5 Active metoprolol tartrate (LOPRESSOR) 25 mg tablet Take 1 tablet (25 mg total) by mouth 2 (two) times a day. 180 each 1 5 025 Discontinued losartan (COZAAR) 50 mg tablet Take 1 tablet (50 mg total) by mouth 2 (two) times a day. 180 each 1 5 025 Discontinued isosorbide mononitrate (IMDUR) 60 mg 24 hr tablet Take 1 tablet (60 mg total) by mouth 1 (one) time each day. 90 each 1 5 025 Discontinued clopidogreL (PLAVIX) 75 mg tablet Take 1 tablet (75 mg total) by mouth 1 (one) time each day. 90 each 1 5 025 Discontinued atorvastatin (LIPITOR) 80 mg tablet Take 1 tablet (80 mg total) by mouth 1 (one) time each day. 90 each 1 5 025 Discontinued amLODIPine (NORVASC) 5 mg tablet Take 1 tablet (5 mg total) by mouth 1 (one) time each day. 90 each 5 025 Discontinued apixaban (Eliquis) 5 mg tablet TAKE 1 TABLET BY MOUTH TWICE A DAY 180 tablet 1 5 025 Discontinued Active Problems Problem Noted Date Diagnosed Date Chest pain 07/07/2025 Preoperative cardiovascular examination 03/11/20 25 Assessment & Plan (03/11/2025 8:59 AM EDT): The patient is here for preop cardiovascular examination prior to bilateral knee replacements in March 2025. Per the Carbone Cardiac Risk Index the patient is moderate risk for this procedure - risk is largely elevated due to functional status with the aim of his surgery to improve quality of life. He is stable from a cardiovascular standpoint and is not recommended for any preoperative testing - catheterization within the last three years in this nondiabetic patient. Please continue with his isosorbide, amlodipine and metoprolol perioperatively. Stop clopidogrel five days before, start ASA 81mg at that time and then stop apixaban 2 days before. Stay on ASA perioperatively. Restart clopidogrel and apixaban after procedure and then stop Aspirin. Please avoid large fluid shifts, sustained tachycardia or profound anemia in order to prevent demand ischemic events. Cerebrovascular accident (CVA) 01/13/2025 Overview (07/28/2025): April 2014 CVA with left sided weakness during surgery for attempted CEA ultimately undergoing successful carotid artery stenting August 2014 CVA and then again in 2018 Assessment & Plan (07/28/2025 3:27 PM EST): Chronic left sided weakness. No new or worsening neurologic symptoms. Continue with amlodipine, atorvastatin, clopidogrel, apixaban, isosorbide, losartan and metoprolol. We discussed risk reduction through lifestyle choices including healthy diet, routine exercise and weight management. Assessment & Plan (03/11/2025 8:59 AM EDT): No new or worsening neurologic symptoms. Continue with apixaban, clopidogrel, atorvastatin, metoprolol, amlodipine, losartan and isosorbide. We discussed risk reduction through lifestyle choices including healthy diet, routine exercise and weight management. Retroperitoneal hematoma 01/13/2025 Arthritis of knee 10/09/2022 History of cerebrovascular a ccident (CVA) with residual deficit 10/09/2022 [place] (myocardial infarction) 10/09/2022 PAF (paroxysmal atrial fibrillation) 10/09/2022 Assessment & Plan (07/28/2025 3:27 PM EST): Paroxysmal atrial fibrillation. Asymptomatic. CHADSVASc - 6. Continue with apixaban and metoprolol. Orders: ECG 12 lead Assessment & Plan (03/11/2025 8:59 AM EDT): Paroxysmal atrial fibrillation. Asymptomatic. Continue with metoprolol and apixaban. BPH (benign prostatic hyperplasia) 07/12/2020 Rectus sheath hematoma 06/18/2019 Overview (01/13/2025): 06/21; [facility] Nephrolithiasis 02/08/2018 Osteopenia 06/25/2017 Overview (01/13/2025): Dr Dexter Bronchiectasis 12/16/2016 Overview (02/09/2025): Dr Aponte Renal cyst 02/19/2016 Overview (01/13/2025): Very large (one is 26cm); observation; sees urology GERD (gastroesophageal reflux disease) 6 CAROLYN (obstructive sleep apnea) 05/18/2015 CAD (coronary artery disease) 05/07/2015 Overview (03/11/2025): September 1998 cardiac catheterization with left circumflex marginal artery angioplasty July 2013 repeat angiogram with medical therapy recommended for 70% LAD stenosis which was not suited for percutaneous intervention September 11, 2022 cardiac catheterization showed 90% stenosis with aneurysmal segment in the mid LAD, mild diffuse disease of the left circumflex and 40% stenosis of the mid RCA. ROSLYN successfully placed in mid LAD lesion. September 2022 echocardiogram showing LVEF of 55-60%, no significant valve disease, no significant change from prior study on 06/12/2019 Assessment & Plan (07/28/2025 3:27 PM EST): Catheterization from 2022 showed significant mostly single vessel disease with one ROSLYN to mid LAD. Echocardiogram from 2022 showed preserved LV systolic function LVEF 55-60%. No anginal symptoms. Continue with apixaban, atorvastatin, clopidogrel, amlodipine, isosorbide, losartan and metoprolol. We discussed risk reduction through lifestyle choices including healthy diet, routine exercise and weight management. Assessment & Plan (03/11/2025 8:59 AM EDT): Catheterization from 2022 showed significant LAD disease status post stenting with medical therapy of residual mild disease of left circumflex and RCA arteries. Echocardiogram from 2023 showed preserved LV systolic function with no obvious regional wall motion abnormalities. No anginal symptoms at limited levels. Continue with apixaban, clopidogrel, atorvastatin, metoprolol, amlodipine, losartan and isosorbide. We discussed risk reduction through lifestyle choices including healthy diet, routine exercise and weight management. Carotid artery stenosis 05/07/2015 Overweight 05/07/2015 Hyperlipidemia 04/14/2015 Assessment & Plan (07/28/2025 3:27 PM EST): Continue with atorvastatin. Assessment & Plan (03/11/2025 8:59 AM EDT): December 2023 - LDL 58. Continue with atorvastatin. He will need updated lipid panel. 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 Continue with amlodipine, isosorbide, losartan, metoprolol. Assessment & Plan (03/11/2025 8:59 AM EDT): Controlled. Continue with metoprolol, amlodipine, losartan and isosorbide. Encounters Date Type Department Care Team Description 07/23/2025 2:10 PM EST Office Visit [facility] [address] [facility] [address] [place] [phone] Manuel Vinson NP PAF (paroxysmal atrial fibrillation) ([facility] V24, [facility] V28) (Primary Dx); Coronary artery disease involving muscogee coronary artery of muscogee heart without angina pectoris; Hypertension, unspecified type; Cerebrovascular accident (CVA), unspecified mechanism ([facility] V24, [facility] V28); Hyperlipidemia, unspecified hyperlipidemia type 07/23/2025 Telephone Internal Medicine - [address] [phone] Gin Beverly DO 07/09/2025 Telephone Internal Medicine [address] [phone] Minda Ramirez MA 07/03/2025 Telephone Internal Medicine - [address] [phone] Chelsi Fisher MA 07/02/2025 Telephone Internal Medicine - [address] [phone] Gin Beverly, 06/16/2025 3:00 PM EDT Office Visit Internal Medicine - [address] [phone] Joshua Khan PA Tremor (Primary Dx); Contracture, left foot; Chest pain, unspecified type; Gastroesophageal reflux disease, unspecified whether esophagitis present 06/03/2025 Telephone [facility] [address] [facility] [address] [place] [address] Harinder Castro MD 06/02/2025 [facility] [phone] Ketty Rodriguez RN 05/30/2025 Telephone [facility] [address], [address] [phone] Francie Forrester MD 05/30/2025 Telemedicine [facility] [address], [address] [phone] Francie Forrester MD 05/15/2025 Telephone Internal Medicine - [address] [place] [address] Honey Mcdonough MA from Last 3 Months Immunizations Immunization Administration Dates Next Due Influenza Quadravalent, 0.5m l (Fluzone High-dose) 65yo and older 06/08/2021 Influenza Quadravalent, MDCK , 0.5ml, with preservative (Flucelvax) 6mo and older 05/24/2020 Influenza trivalent, 0.5mL ( Fluad) 65yo and older 06/27/2024,06/19/2023,06/13/2022,06/25,07/06/2017,05/19/2016 Influenza trivalent, with pr eservative (Fluzone; Afluria) 6mo and older 06/13/2019,06/11/2015,08/07/2013 [employer] SARS-CoV-2 COVID-19, mRNA, LNP-S, preservative free 07/20/2021,10/23/2020,10/02/2020 Pneumococcal conjugate 13 va lent (Prevnar 13, PCV13) 2mo and older 12/12/2018 Pneumococcal polysaccharide 23 valent (Pneumovax 23) 2yo and older 05/03/2012 Td Tetanus diptheria (Tdvax) 7yo and older 11/21/2006 Tdap Tetanus diptheria acell ular pertussis (Boostrix; Adacel) 7yo and older 02/28/2023 Surgical History Surgery Date Site/Laterality Comments HERNIA REPAIR PROCEDURE: HISTORICAL HERNIA REPAIR/ING OTHER SURGICAL HISTORY PROCEDURE: ---- OTHER ----; COMMENT: CEA attempted mid-2013, then stented 08/16 HERNIA REPAIR PROCEDURE: HISTORICAL HERNIA REPAIR/UMB; COMMENT: x2 COLONOSCOPY 11/25/02 PROCEDURE: HISTORICAL COLONOSCOPY UPPER GASTROINTESTINAL ENDOSCOPY 11/05/02 PROCEDURE: UPPER GI ENDOSCOPY/EXAM; COMMENT: grade 2 erosive esophagitis Medical History Medical History Date Comments CAROLYN (obstructive sleep apnea) 05/18/2015 DX :CAROLYN (obstructive sleep apnea) Thyroid nodule 04/14/2015 DX:Thyroid nodul e; COMMENT: Dr Dexter Overweight 05/07/2015 DX:Overweight Hypertension 04/07/2015 DX:Hypertension Hyperparathyroidism ([facility] V24) 04/14/2015 DX:Hyperparathyroidism (HCC) Hyperlipidemia 04/14/2015 DX:Hyperlipidemi a Hemiparesis due to old strok e ([facility] V24, [facility] V28) 04/07/2015 DX:Hemiparesis due to old [facility] ([facility]); COMMENT: CVA during surgery for attempted CEA 04/16; had another CVA 08/16 Carotid artery stenosis with cerebral infarction over 8 weeks ago 05/07/2015 DX:Carotid artery stenosis with cerebral infarction over 8 weeks ago CAD (coronary artery disease) 05/07/2015 DX :CAD (coronary artery disease); COMMENT: Stent; Dr Castro Restless legs syndrome (RLS) 10/20/2015 DX: Restless legs syndrome (RLS) Vitamin D deficiency 10/20/2015 DX:Vitamin D deficiency GERD (gastroesophageal reflux disease) 10/20/2015 DX:GERD (gastroesophageal reflux disease) Erosive esophagitis 10/20/2015 DX:Erosive e sophagitis; COMMENT: Upper endo 2003 History of CVA (cerebrovascular accident) Family History Medical History Relation Name Comments Coronary artery disease Father Hypertension Father Breast cancer Mother Hypertension Mother Diabetes Neg Hx Relation Name Status Comments Father Mother Social History Tobacco Use Types Packs/Day Years Used Date Smoking Tobacco: Former Cigarettes Smokeless Tobacco: Never Tobacco Cessation:Counseling Given: Not Answered Alcohol Use Standard Drinks/Week Comments Not Currently 0 (1 standard drink = 0.6 oz pur e alcohol) Sex and Gender Information Value Date Recorded Sex Assigned at Not on file Legal Sex Male 7:04 PM EST Gender Identity Not on file Sexual Orientation Not on file Last Filed Vital Signs Vital Sign Reading Time Taken Comments Blood Pressure 104/70 07/23/2025 2:10 PM EST Pulse 96 07/23/2025 2:10 PM EST Temperature - - Respiratory Rate - - Oxygen Saturation 90% 07/23/2025 2:10 PM EST Inhaled Oxygen Concentration - - Weight 102 kg (225 lb) 05/12/2025 1:19 PM EDT Height 180.3 cm (5' 11 ) 07/23/2025 2:10 PM EST Body Mass Index 32.28 05/12/2025 1:19 PM EDT Plan of Treatment Health Maintenance Due Date Last Done Comments Zoster Vaccines (1 of 2) 1994 RSV Immunization Adult Patients (1 - 1-dose 75+ series) 12/07/2019 Colorectal Cancer Screening: Colonoscopy 09/28/2021 09/28/2016 Falls Risk Assessment 08/05/2022 Medicare Annual Wellness Visit 08/05/2022 Social Influencers of Health Screening 08/05/2022 Hypertension/CHF/CAD Annual BMP Blood Test 08/13/2022 COVID-19 Vaccine ( season) 2025 08/05/2023, 07/20/2022, 07/20/2021, Additional history exists Cholesterol Screening (Lipid Panel) 12/23/2028 12/24/2023 DTaP,Tdap,and Td Vaccines (3 - Td or Tdap) 02/28/2033 02/28/2023, 11/21/2006 Pneumococcal Vaccine: 50+ Years Completed 12/12/2018, 05/03/2012 Depression Screening Completed 02/24/2025 Influenza Vaccine Completed 05/29/2025, , 06/19/2023, Additional history exists HIB Vaccines Aged Out No longer eligi ble based on patient's age to complete this topic HPV Vaccines Aged Out No longer eligi ble based on patient's age to complete this topic Hepatitis A Vaccines Aged Out No long er eligible based on patient's age to complete this topic Hepatitis B Vaccines Aged Out No long er eligible based on patient's age to complete this topic IPV Vaccines Aged Out No longer eligi ble based on patient's age to complete this topic MMR Vaccines Aged Out No longer eligi ble based on patient's age to complete this topic Meningococcal ACWY Vaccine Aged Out N o longer eligible based on patient's age to complete this topic Meningococcal B Vaccine Aged Out No l onger eligible based on patient's age to complete this topic RSV Immunization Patients Under 20 months Aged Out No longer eligible based on patient's age to complete this topic Varicella Vaccines Aged Out No longer eligible based on patient's age to complete this topic Procedures Procedure Name Priority Date/Time Associated Diagnosis Comments ECG 12-LEAD Routine 07/23/2025 2:27 PM EST PAF (paroxysmal atrial fibrillation) ([facility] V24, [facility] V28) LIPID PANEL Routine 12/24/2023 COLONOSCOPY Routine 09/28/2016 from Last 3 Months or Most Recently Relevant to Health Maintenance Results * ECG 12 lead (07/23/2025 2:27 PM EST) Ventricular Rate ECG 96 BPM GEMUSE Atrial Rate 86 BPM GEMUSE QRS Duration 86 ms GEMUSE Q-T Interval 362 ms GEMUSE QTc 457 ms GEMUSE R [place] 44 degrees GEMUSE T [place] 76 degrees GEMUSE ECG Interpretation Atrial fibrillation Possible Inferior infarct (cited on or before 23-JUL-2025) Abnormal ECG When compared with ECG of 25-FEB-2003 08:14, Atrial fibrillation has replaced Sinus rhythm Vent. rate has increased BY 48 BPM Confirmed by LUCIO SORIA ([id number]) on 07/23/2025 3:13:41 PM GEMUSE 07/23/2025 2:27 PM EST 07/23/2025 3:13 PM EST Manuel Vinson SUPERVISOR WORD PROCESSING ECG ORDERABLES Final Resul t GEMUSE * Lipid panel (12/24/2023) LDL/HDL Ratio 3 Triglycerides 102 mg/dL Cholesterol 129 mg/dL HDL 51 mg/dL LDL Cholesterol 58 mg/dL Blood Venous blood specimen / Unknown Historical Provider LAB BLOOD ORDERABLES Latoya l Result * Colonoscopy (09/28/2016) Colonoscopy completed Anatomical Region Laterality Modality Other Historical Provider HEALTH MAINTENANCE Final Result from Last 3 Months or Most Recently Relevant to Health Maintenance [place] [id number] [place] [phone] Care Teams Recreational Sports Director Relationship Specialty Start Date End Date Joshua Khan PA [address] [facility] [place] [address] PCP - General Pediatrics 07/23/25
== END 2025-08-12 13:41 | disposition home or self-care (01) ==
LOC: HO.HSM 13:03
PROVIDERS: PCP Physician Assistant; Visit Provider Psychiatry & Neurology Neurology
DX: I63.9 Cerebral infarction, unspecified (principal); I69.354 Hemiplegia and hemiparesis following cerebral infarction affecting left non-dominant side; R25.1 Tremor, unspecified
CPT/HCPCS: 99205

== ENCOUNTER → 2025-08-12 13:03 | Outpatient (BNVA) | payer MEDICARE, SELFPAY | PROVIDERS: PCP Physician Assistant; Visit Provider Psychiatry & Neurology Neurology | DX: I69.354 Hemiplegia and hemiparesis following cerebral infarction affecting left non-dominant side (principal); R25.1 Tremor, unspecified; I63.9 Cerebral infarction, unspecified | CPT/HCPCS: 99202 ==